=== PATIENT | female | born 1985 | race Caucasian/White ===

== ENCOUNTER 2024-09-25 01:28 | Emergency (ER) | payer OTHER ==
[~2024-09-25] VITALS: Ht 165.1 cm; Wt 68.0 kg
[2024-09-25 02:00] VITALS: BP 92/56
[2024-09-25] MEDS ORDERED: Ondansetron HCl 2 MG / ML 2ML Vial IV PRN (02:05)
[2024-09-25] MEDS ORDERED: NS 1,000 ML IV SCH (02:10)
[2024-09-25 02:24] LABS: BASOPHILS ABSOLUTE AUTO 0.07 K/mm3 (0.00-0.23); BASOPHILS PERCENT AUTO 1 % (0-2); EOSINOPHILS ABSOLUTE AUTO 0.04 K/mm3 (0.00-0.68); EOSINOPHILS PERCENT AUTO 0 % (0-6); Hematocrit 37.3 % (33.0-51.0); Hemoglobin 12.7 g/dL (11.5-16.0); IMMATURE GRAN ABSOLUTE AUTO 0.06 K/mm3 (0.00-0.10); IMMATURE GRAN PERCENT AUTO 1 % (0-1); LYMPHOCYTES ABSOLUTE AUTO 0.81 K/mm3 (0.84-5.20); LYMPHOCYTES PERCENT AUTO 6 % (21-46); MONOCYTES ABSOLUTE AUTO 0.25 K/mm3 (0.16-1.47); MONOCYTES PERCENT AUTO 2 % (4-13); Mean Corpuscular Volume 82 fL (80-100); Mean Platelet Volume 10.3 fL (9.1-12.4); NEUTROPHILS ABSOLUTE AUTO 11.43 K/mm3 (1.96-9.15); NEUTROPHILS PERCENT AUTO 90 % (41-73); Platelet Count 286 K/mm3 (150-400); RDW Standard Deviation 41.5 fL (35.1-46.3); Red Blood Cell Count 4.53 M/mm3 (3.80-5.20); White Blood Cell Count 12.66 K/mm3 (4.00-11.30)
[2024-09-25] MEDS ORDERED: EUTHYROX75 MC1 PO (02:36)
[2024-09-25 02:43] LABS: Albumin/Globulin Ratio 1.2 (0.8-1.8); Bun/Creatinine Ratio 22.6 (12.0-20.0); Calcium, Blood 9.6 mg/dL (8.5-10.1); Creatinine, Blood 0.88 mg/dL (0.40-1.00); Globulin, Blood 3.2 g/dL (2.2-4.0); Potassium, Blood 4.1 mmol/L (3.5-5.5); Total Protein, Blood 7.2 g/dL (6.4-8.2)
[2024-09-25] MEDS ORDERED: DiphenhydrAMINE HCl 50 MG/ML 1ML Vial IV ONE ×2 (02:45→05:00)
[2024-09-25] MEDS ORDERED: Metoclopramide HCl 5MG / ML 2ML Vial IV ONE (02:45)
[2024-09-25] MEDS ORDERED: Ondansetron HCl 2 MG / ML 2ML Vial IV ONE (02:45)
[2024-09-25 04:11] LABS: Source, Urine Clean Catch
[2024-09-25 04:21] LABS: Bilirubin, Urine Neg (Neg); Blood, Urine 5+ (Neg); Glucose Qualitative, Urine Neg (Neg); Ketones, Urine 4+ (Neg); Leukocyte Esterase, Urine 1+ (Neg); Nitrite, Urine Neg (Neg); Protein, Urine 2+ (Neg); Specific Gravity, Urine 1.025 (1.003-1.022); Urobilinogen, Urine NORM (Normal)
[2024-09-25 04:37] LABS: Amorphous Light (0-Heavy); Appearance, Urine Hazy (Clear); Bacteria Mod /hpf; Color, Urine Yellow (P-Yellow); Mucus Mod (0-Heavy); Red Blood Cells, Urine 0-2 /hpf (0-2); Squamous Epithelial Cells Few /hpf (Few)
[2024-09-25] MEDS ORDERED: Haloperidol Lactate Inj. 5 MG/ML Injection IV ONE (05:00)
[2024-09-25] MEDS ORDERED: ONDA4 PO (06:14)
[2024-09-25] MEDS ORDERED: DICY20 PO (06:14)
== END 2024-09-25 07:01 | disposition home or self-care (01) ==
LOC: ER 01:28
PROVIDERS: Emergency Medicine
DX: R10.84 Generalized abdominal pain (principal); R11.2 Nausea with vomiting, unspecified; E03.9 Hypothyroidism, unspecified; Z88.2 Allergy status to sulfonamides; Z88.1 Allergy status to other antibiotic agents; Z79.890 Hormone replacement therapy
CPT/HCPCS: 36415; 74177; 80053; 81001; 81025; 83690; 85025; 87086; 96361; 96374-59; 96375; 96376; 99284; J1200; J1630; J2405; J2765; J7030; Q9967